=== PATIENT | female | born 1940 | race Caucasian/White ===

== ENCOUNTER 2020-06-02 16:34 | Inpatient (IN) | payer OTHER ==
[~2020-06-02] VITALS: Ht 167.6 cm; Wt 79.5 kg
[2020-06-02] MEDS ORDERED: BISACODYL 10 MG SUPP (DULCOLAX) PR PRN (17:30)
[2020-06-02] MEDS ORDERED: ONDANSETRON 4 MG (ZOFRAN) ORAL DISSOLVE TAB PO PRN (17:30)
[2020-06-02] MEDS ORDERED: MELATONIN 3 MG TABLET PO PRN (17:30)
[2020-06-02] MEDS ORDERED: ACETAMINOPHEN 325 MG TABLET PO PRN (17:30)
[2020-06-02] MEDS ORDERED: polyethylene glycoL POWDER 17 GM (MIRALAX) PACK PO PRN (17:30)
[2020-06-02] MEDS ORDERED: ANTACID SUSP 30 ML UDC (MYLANTA) PO PRN (17:30)
[2020-06-02] MEDS ORDERED: ONDANSETRON 4 MG/2 ML (SDV) Z0FRAN IV PRN (17:30)
[2020-06-02 19:04] VITALS: BP 146/70
[2020-06-02] MEDS: inSUlin ASPART (NovoLOG) 1 UNIT/0.01 ML (CHARGE PER UNIT) SC SCH (20:10)
[2020-06-02] MEDS ORDERED: BUSP15TA60 PO (21:14)
[2020-06-02] MEDS ORDERED: ACET-2267 PO (21:14)
[2020-06-02] MEDS ORDERED: GABA300S2 PO (21:14)
[2020-06-02] MEDS ORDERED: ACETAMINOPHEN 500 MG TAB (TYLENOL) PO SCH (21:15)
[2020-06-02] MEDS ORDERED: busPIRone 15 MG (BUSPAR) TABLET PO SCH (21:15)
[2020-06-02] MEDS ORDERED: FERR325T18 PO (21:27)
[2020-06-02] MEDS ORDERED: ONDA4TAB11 PO (21:27)
[2020-06-02] MEDS ORDERED: SIMV20TA PO (21:27)
[2020-06-02] MEDS ORDERED: OMEP20CA18 PO (21:27)
[2020-06-02] MEDS ORDERED: APIX5TAB PO (21:27)
[2020-06-02] MEDS ORDERED: vitamin d2 PO (21:27)
[2020-06-02] MEDS ORDERED: GABAPENTIN 600 MG (NEURONTIN) TAB PO SCH (21:30)
[2020-06-03] VITALS: BP 134/63
[2020-06-03] MEDS ORDERED: FLUT1AER IH (02:02)
[2020-06-03] MEDS ORDERED: AMLO10TA4 PO (02:02)
[2020-06-03] MEDS ORDERED: MONT10TA21 PO (02:02)
[2020-06-03] MEDS ORDERED: HYDR-3923 PO (02:02)
[2020-06-03] MEDS ORDERED: BENZ100C18 PO (02:02)
[2020-06-03] MEDS ORDERED: ASPI-1238 PO (02:02)
[2020-06-03] MEDS ORDERED: BUSP10TA95 PO (02:02)
[2020-06-03] MEDS ORDERED: AMOX-358 PO (02:08)
[2020-06-03] MEDS ORDERED: METR500T PO (02:08)
[2020-06-03 03:42] VITALS: BP 129/65
[2020-06-03] MEDS: inSUlin ASPART (NovoLOG) 1 UNIT/0.01 ML (CHARGE PER UNIT) SC SCH ×2 (06:01→11:49)
[2020-06-03 06:16] LABS: BASOPHILS % (AUTO) 0 % (0-10); EOSINOPHILS % (AUTO) 0 % (0-10); HEMATOCRIT 37 % (35-52); HEMOGLOBIN 11.5 g/dL (11.5-16.0); LYMPHOCYTES # (AUTO) 0.6 10^3/uL (1.0-4.0); LYMPHOCYTES % (AUTO) 20 % (12-44); MEAN CORPUSCULAR HEMOGLOBIN 30 pg (25-34); MEAN CORPUSCULAR HGB CONC 31 g/dL (32-36); MEAN CORPUSCULAR VOLUME 96 fL (80-99); MEAN PLATELET VOLUME 10.3 fL (9.0-12.2); MONOCYTES # (AUTO) 0.3 10^3/uL (0.0-1.0); MONOCYTES % (AUTO) 11 % (0-12); NEUTROPHILS # (AUTO) 2.2 10^3/uL (1.8-7.8); NEUTROPHILS % (AUTO) 69 % (42-75); PLATELET COUNT 163 10^3/uL (130-400); WHITE BLOOD COUNT 3.2 10^3/uL (4.3-11.0)
[2020-06-03 06:28] LABS: CALCIUM 8.3 MG/DL (8.5-10.1)
[2020-06-03 06:33] LABS: CREATININE SERUM 0.92 MG/DL (0.60-1.30)
[2020-06-03] MEDS ORDERED: dexAMETHasone 6 MG TAB (DECADRON) PO SCH (07:00)
[2020-06-03 08:00] VITALS: BP 148/67
[2020-06-03] MEDS ORDERED: hydrALAZINE (APRESOLINE) 25 MG TAB PO SCH (08:30)
[2020-06-03] MEDS ORDERED: ADVAIR HFA 115/21 MCG INHALER 8 GM IH SCH ×2 (08:49→08:50)
[2020-06-03] MEDS ORDERED: ENOXAPARIN 40 MG/0.4 ML (LOVENOX) SYR SC SCH (09:00)
[2020-06-03] MEDS ORDERED: ASPIRIN E.C. 81 MG (ECOTRIN) TAB PO SCH (09:00)
[2020-06-03] MEDS ORDERED: PHARMACY TO DOSE SQ SCH (09:00)
[2020-06-03] MEDS ORDERED: amLODIPine 10 MG (NORVASC) TAB PO SCH (09:00)
[2020-06-03] MEDS ORDERED: PANTOPRAZOLE 20 MG TABLET (PROTONIX) PO SCH (09:00)
[2020-06-03] MEDS ORDERED: APIXABAN 5 MG (ELIQUIS) TABLET PO SCH (09:00)
[2020-06-03] MEDS ORDERED: busPIRone 10 MG (BUSPAR) TAB PO SCH (09:00)
[2020-06-03 11:50] VITALS: BP 154/69
[2020-06-03] MEDS ORDERED: LOPE-175 PO (13:19)
--- NOTE | 2020-06-03 13:25 | Discharge Summary ---
Discharge Summary Hospital Course Was the Problem List Reviewed?: Yes Problems/Dx: (1) Acute respiratory failure due to COVID-19 Status: Acute (2) Diarrhea due to COVID-19 Status: Acute Hospital Course Date of Admission: Jun 02, 2020 at 18:40 Admission Diagnosis : acute respiratory failure due to COVID-19 Family Physician/Provider: Date of Discharge: 06/03/20 Discharge Diagnosis: acute respiratory failure due to COVID-19 Hospital Course: Bea Pa is a 80-year-old female who was admitted with acute respiratory michell lure due to COVID-19. She was started on IV steroids and improved rapidly. She was initially on oxygen, but the next morning she was not requiring any supplemental oxygen. Her main symptom was diarrhea. She was having adequate oral intake and did not appear to be dehydrated. She lives alone, but her daughter lives close and is able to provide some support. She believed that she would be able to take care of herself at home. She was instructed to use Imodium as needed for diarrhea. She was discharged home in stable condition. She should follow-up with her primary care physician in a couple weeks. Labs and Pending Lab Test: Laboratory Tests 06/02/20 20:04: Glucometer 117H 06/03/20 04:40: White Blood Count 3.2L, Red Blood Count 3.82, Hemoglobin 11.5, Hematocrit 37, Mean Corpuscular Volume 96, Mean Corpuscular Hemoglobin 30, Mean Corpuscular Hemoglobin Concent 31L, Red Cell Distribution Width 14.6H, Platelet Count 163, Mean Platelet Volume 10.3, Immature Granulocyte % (Auto) 0, Neutrophils (%) (Auto) 69, Lymphocytes (%) (Auto) 20, Monocytes (%) (Auto) 11, Eosinophils (%) (Auto) 0, Basophils (%) (Auto) 0, Neutrophils # (Auto) 2.2, Lymphocytes # (Auto) 0.6L, Monocytes # (Auto) 0.3, Eosinophils # (Auto) 0.0, Basophils # (Auto) 0.0, Immature Granulocyte # (Auto) 0.0, Sodium Level 139, Potassium Level 4.0, Chloride Level 106, Carbon Dioxide Level 21, Anion Gap 12, Blood Urea Nitrogen 18, Creatinine 0.92, Estimat Glomerular Filtration Rate 59, BUN/Creatinine Ratio 20, Glucose Level 103, Calcium Level 8.3L, Procalcitonin 0.04 06/03/20 05:59: Glucometer 108 06/03/20 11:49: Glucometer 103 Home Meds Active Imodium A-D (Loperamide HCl) 2 Mg Capsule 2 Mg PO QID PRN MDD 4 CAPSULES 7 Days TAKE 2 CAPSULES AFTER FIRST LOOSE STOOL, THEN 1 CAPSULE FOR EACH LOOSE STOOL AFTER. MAX 4 CAPSULES DAILY. Reported Flagyl (Metronidazole) 500 Mg Tablet 500 Mg PO BID TAKE 1 TABLET (500 MG) BY MOUTH 2 TIMES A DAY DAILY FOR 7 DAYS. RX FILLED ON 05/31/2020 Augmentin 875-125 Tablet (Amoxicillin/Potassium Clav) 1 Each Tablet 1 Each PO Q12H 10 Days TAKE 1 TABLET EVERY 12 HOURS FOR 10 DAYS. RX FILLED 05/31/2020 Buspirone HCl 10 Mg Tablet 10 Mg PO DAILY Aspirin EC (Aspirin) 81 Mg Tablet.dr 81 Mg PO DAILY Tessalon Perles (Benzonatate) 100 Mg Capsule 200 Mg PO TID PRN Singulair (Montelukast Sodium) 10 Mg Tablet 10 Mg PO HS Breo Ellipta 100-25 Mcg INH (Fluticasone/Vilanterol) 1 Each Blst.w.dev 1 Each IH DAILY Hydralazine HCl 25 Mg Tablet 25 Mg PO Q8H Norvasc (Amlodipine Besylate) 10 Mg Tablet 10 Mg PO DAILY Ondansetron Odt (Ondansetron) 4 Mg Tab.rapdis 4 Mg PO Q6H PRN Zocor (Simvastatin) 20 Mg Tablet 20 Mg PO HS Ferrous Sulfate 325 Mg Tablet 325 Mg PO DAILY Eliquis (Apixaban) 5 Mg Tablet 5 Mg PO BID Omeprazole 20 Mg Capsule.dr 20 Mg PO DAILY [vitamin d2] 6,000 Units PO DAILY Tylenol Extra Strength (Acetaminophen) 500 Mg Tablet 500 Mg PO HS Gabapentin 300 Mg/6 Ml Solution 600 Mg PO HS Buspirone HCl 15 Mg Tablet 15 Mg PO HS Assessment/Pt Instructions take medications as prescribed. Begin taking Imodium as needed for diarrhea. Follow-up with your primary care physician in a couple weeks. He'll be required to isolate at home on discharge. The health department should be in contact with you for further recommendations. Return with worsening shortness of breath, dehydration, or if you feel like you're getting worse. Discharge Planning: <30 minutes discharge planning Discharge Instructions Discharge Diet: No Restrictions Activity as Tolerated: Yes Discharge Physical Examination Vital Signs Vital Signs Date Time Temp Pulse Resp B/P (MAP) Pulse Ox O2 Delivery O2 Flow Rate FiO2 06/03/20 11:50 36.6 96 18 154/69 (97) 96 Room Air 06/03/20 08:00 2.00 General Appearance: No Apparent Distress, WD/WN HEENT: PERRL/EOMI, Pharynx Normal Respiratory: Lungs Clear, Normal Breath Sounds, No Respiratory Distress Cardiovascular: Regular Rate, Rhythm, No Edema, No Murmur Gastrointestinal: Normal Bowel Sounds, Non Tender, Soft Extremity: Normal Inspection, Non Tender, No Pedal Edema Skin: Normal Color, Warm/Dry Neurologic/Psychiatric: Alert, Oriented x3, No Motor/Sensory Deficits, Normal Mood/Affect Allergies: Coded Allergies: hydrocodone (Verified Allergy, Intermediate, Hives, 06/03/20) ITCHING Discharge Summary Date of Admission Jun 02, 2020 at 18:40 Date of Discharge Discharge Date: Jun 03, 2020 Discharge Time: 13:21 Admission Diagnosis acute respiratory failure due to COVID-19 Discharge Diagnosis acute respiratory failure and diarrhea due to COVID-19 (1) Acute respiratory failure due to COVID-19 Status: Acute (2) Diarrhea due to COVID-19 Status: Acute Clinical Quality Measures DVT/VTE Risk/Contraindication: Risk Factor Score Per Nursin RFS Level Per Nursing on Admit: 4+=Very High CLAUS AGUIRRE MD Jun 03, 2020 13:25
[2020-06-03] MEDS ORDERED: MONTELUKAST 10 MG (SINGULAIR) TAB PO SCH (21:00)
[2020-06-03] MEDS ORDERED: SIMvastatin 20 MG (ZOCOR) TAB PO SCH (21:00)
== END 2020-06-03 14:45 | disposition home or self-care (01) | DRG 177 ==
LOC: 4TH 18:40
PROVIDERS: ADMIT Internal Medicine; ATTEND Internal Medicine
DX: U07.1 COVID-19 (principal); J96.00 Acute respiratory failure, unspecified whether with hypoxia or hypercapnia; A08.39 Other viral enteritis
CPT/HCPCS: 36415; 71045; 80048; 82962; 84145; 85025